=== PATIENT | male | born 1985 | race African-American/Black ===

== ENCOUNTER 2022-07-10 11:48 | Emergency (ER) | payer OTHER ==
[~2022-07-10] VITALS: Ht 162.6 cm; Wt 90.7 kg
[2022-07-10 13:00] VITALS: BP 124/75; TEMP 97.9
== END 2022-07-10 13:05 | disposition home or self-care (01) ==
LOC: ED 11:48
PROC: 0HQEXZZ Repair Left Lower Arm Skin, External Approach (ICD-10-PCS; principal; 2022-07-10)
DX: S51.812A Laceration without foreign body of left forearm, initial encounter (principal); W26.8XXA Contact with other sharp object(s), not elsewhere classified, initial encounter
CPT/HCPCS: 90471; 90715; 99283